=== PATIENT | female | born 1980 | race Caucasian/White ===

== ENCOUNTER 2018-10-07 07:24 | Day surgery (SDC) | payer BC, OTHER ==
[~2018-10-07 07:24] MED LIST: CEFOXITIN/SWI 2gm 2 GM/20 ML SYR IV SCH
[2018-10-07] MEDS ORDERED: Ringers Lactate 1,000 ML IV ONE (08:08)
[2018-10-07] MEDS ORDERED: CEFOXITIN/SWI 1gm 1 GM/10 ML SYR ONE (08:14)
[2018-10-07] MEDS ORDERED: BUPIVACA 0.25%/EPI 0.0005% MDV 50 ML VIAL ONE (08:15)
[2018-10-07] MEDS ORDERED: PROPOFOL 200 MG/20 ML VIAL IV ONE (08:37)
[2018-10-07] MEDS ORDERED: DEXAMETHASONE 10 MG/ML VIAL ONE (08:37)
[2018-10-07] MEDS ORDERED: MIDAZOLAM HCL 2 MG/2 ML INJ ONE (08:37)
[2018-10-07] MEDS ORDERED: FENTANYL CITR 100 MCG/2 ML ONE (08:37)
[2018-10-07] MEDS ORDERED: LIDOCAINE 2% MPF 5 ML VIAL ONE (08:37)
[2018-10-07] MEDS ORDERED: ROCURONIUM 50 MG/5 ML VIAL IV ONE (08:37)
[2018-10-07] MEDS ORDERED: EPHEDRINE SULF 50 MG/10 ML SYR ONE (09:12)
[2018-10-07] MEDS ORDERED: KETOROLAC 30 MG/ML INJ ONE (09:44)
[2018-10-07] MEDS ORDERED: MORPHINE 10 MG/ML VIAL ONE (09:47)
--- NOTE | 2018-10-07 09:48 | P.OP ---
Preoperative diagnosis: Symptomatic Cholelithiasis Postoperative diagnosis: Symptomatic Cholelithiasis Primary procedure: Laparoscopic Cholecystectomy Anesthesia: GETA + Local Estimated blood loss: <5cc Specimen: Gallbladder Findings: Gallbladder full of stones Complications: None Transferred to: Recovery Room Condition: Good
[2018-10-07] MEDS ORDERED: HYDROCODONE/APAP 10/325 TAB ONE (10:48)
--- NOTE | 2018-10-07 21:03 | OP ---
Date of Procedure: 10/07/2018 Surgeon: Barry Almonte MD, Preoperative Diagnosis: Symptomatic cholelithiasis. Postoperative Diagnosis: Symptomatic cholelithiasis. Procedure Performed: Laparoscopic cholecystectomy. Anesthesia: General endotracheal plus local with 0.25% Marcaine with epinephrine. Estimated Blood Loss: Less than 5 cc. Specimens: Gallbladder. Findings: Gallbladder packed full of stones. Complications: None. Disposition: Transferred to recovery room in good condition. Procedure In Detail: An informed consent obtained. The patient was brought to the operating room, p repped and draped in the usual sterile fashion. After adequate anesthesia was achieved, the supraumb ilical area was anesthetized with 0.25% Marcaine, sharply incised. A 5-mm trocar was introduced in t he abdomen without evidence of complication. Insufflation was obtained to 15 mmHg at this time. The re was no injury to vital structures upon entry to the abdomen. Additional trocar site was chosen in the epigastrium. This was similarly anesthetized and sharply incised. A 5-mm trocar was introduced in the abdomen without evidence of complication. The umbilical trocar was then up-sized to a 12 mm under direct visualization without evidence of complication. Additional trocar site was chosen at th e right upper quadrant. This was similarly anesthetized and sharply incised. A 5-mm trocar was intr oduced in the abdomen without evidence of complication. The patient was then positioned in a head-up right-side up position. Ratcheted grasper was used to grasp the patient's gallbladder and placed to wards the patient's right shoulder. Dissection continued down to pull omental attachments and some s car tissue out of the triangle of Calot area to visualize the cystic duct confluence of the gallbladd er. The 2 structures were skeletonized in the triangle of Calot and visualized and identified as the cystic duct and cystic artery. These were both doubly clipped on the proximal side and singly on th e distal side with the EndoClip device and ligated with Endo Shabbir after the critical view of safety was obtained on multiple checks. The gallbladder was removed from the hepatic fossa without evidenc e of complication using electrocautery. There were no additional hemostatic maneuvers required. The gallbladder was then placed in the EndoCatch bag, removed through the umbilical trocar, was found to be completely chock-full of stones, and difficult to remove from the umbilical trocar site. However , I was able to manipulate it and make a slightly increased skin incision, therefore, to remove the g allbladder, which was full of stones. After this was sent off for pathologic examination, re-insuffl ation was obtained at this time. The patient was then irrigated copiously until completely clear and suctioned dry. The patient was positioned in neutral position and the umbilical trocar site was the n closed using a Kumar-Wilian suture passer with multiple 0 Vicryl interrupted sutures with good a pproximation of tissues. The abdomen was then completely desufflated under direct visualization with out evidence of complication. All trocars were then removed and copiously irrigated and closed with a 4-0 Monocryl in a running fashion. Dermabond placed over top. The patient tolerated the procedure well without evidence of complication, transferred to the PACU in good condition. All counts were c orrect at the end of the case. ENRRIQUE/ZENAIDA Voice ID: [id number] Report ID: [id number]
== END 2018-10-07 12:25 | disposition home or self-care (01) ==
LOC: OR 07:24
PROVIDERS: ATTEND Surgery
PROC: 0FT44ZZ Resection of Gallbladder, Percutaneous Endoscopic Approach (ICD-10-PCS; principal; 2018-10-07 08:30)
DX: K80.20 Calculus of gallbladder without cholecystitis without obstruction (principal)
CPT/HCPCS: 81025; 88304; J0694; J1100; J2250; J2704; J3010